=== PATIENT | female | born 1985 | race African-American/Black ===

== ENCOUNTER 2019-04-11 18:02 | Emergency (ER) | payer OTHER ==
[~2019-04-11] VITALS: Ht 165.1 cm; Wt 60.0 kg
[2019-04-11] MEDS ORDERED: HYDROCODONE/ACETAMINOPHEN 5/325MG TABLET PO STA (19:02)
[2019-04-11 20:12] LABS: CHLORIDE 110 mEq/L (98-107)
[2019-04-11 20:15] LABS: BASOPHILS % 0.2 % (0.0-2.0); EOSINOPHILS % 3.9 % (0.0-5.0); HEMOGLOBIN. 12.5 g/dL (12.0-16.0); LYMPHOCYTES % 48.2 % (20.0-50.0); MEAN CORPUSCULAR HEMOGLOBIN 28.5 pg (28.0-32.0); MEAN CORPUSCULAR VOLUME 84.1 fL (81.0-99.0); MEAN PLATELET VOLUME 9.8 fl (7.4-10.4); NEUTROPHILS % 42.7 % (40.0-76.0); PLATELET 194 x1000/uL (130-400); RED BLOOD CELL COUNT 4.39 mill/uL (4.2-5.4); RED CELL DISTRIBUTION WIDTH 13.5 % (11.6-14.6)
[2019-04-11] MEDS ORDERED: ONDANSETRON 4MG ODT PO ONE (20:30)
[2019-04-11 21:24] VITALS: BP 111/60
== END 2019-04-11 21:26 | disposition home or self-care (01) ==
LOC: ER 18:02
DX: S09.8XXA Other specified injuries of head, initial encounter (principal); V49.49XA Driver injured in collision with other motor vehicles in traffic accident, initial encounter; Y93.89 Activity, other specified; Y92.89 Other specified places as the place of occurrence of the external cause; Y99.8 Other external cause status; G40.909 Epilepsy, unspecified, not intractable, without status epilepticus; J45.909 Unspecified asthma, uncomplicated
CPT/HCPCS: 36415; 70450; 72125; 80053; 81025; 85025; 99284; Q0162